=== PATIENT | male | born 1960 | race Caucasian/White ===

== ENCOUNTER 2019-01-19 14:15 | Inpatient (IN) | payer OTHER ==
[~2019-01-19] VITALS: Ht 177.8 cm; Wt 92.6 kg
[~2019-01-19 14:15] MED LIST: DOXE50CA2 PO; FLUO40CA6 PO
[2019-01-19 14:24] VITALS: BP 137/88
--- NOTE | 2019-01-19 14:31 | NUR ---
PT AMBULATED TO LOBBY, VSS
--- NOTE | 2019-01-19 15:02 | NUR ---
C/O CP X2 DAYS. PT REPORTS CONSTANT SARP PAIN IN LT CHEST. STATES PAIN RADIATED TO THE RT SHOULDER. PAIN 9/10. FEELS TINGLING SENSATION ON HIS RT HAND. ABLE TO MOVE , CMS GOOD AT HAND. - N/V, OR SOB . JENA CONTINUE TO MONTIOR PT. PT STATES TO HAVE TAKEN LISINOPRIL 10 MG AT HOME. MEDHX:BACK SURGERY, DVT, IVC FILTER.
--- NOTE | 2019-01-19 15:13 | NUR ---
ER MD ASSESSING PT AT THE BEDSIDE. PROVIDED URINAL , GAVE MORE WATER TO DRINK. WILL CONTINUE TO MONITOR PT.
[2019-01-19 15:19] LABS: BASOPHILS % (AUTO) 0.6 % (0.0-2.0); EOSINOPHILS # (AUTO) 0.1 K/uL (0-0.4); EOSINOPHILS % (AUTO) 1.7 % (0.0-4.0); HEMATOCRIT 41.3 % (36-52); HEMOGLOBIN 13.9 g/dL (12.0-18.0); LYMPHOCYTES # (AUTO) 1.2 K/uL (2.0-11.5); LYMPHOCYTES % (AUTO) 15.3 % (20.5-51.1); MEAN CORPUSCULAR HEMOGLOBIN 33 pg (27-31); MEAN CORPUSCULAR HGB CONC 34 g/dL (33-37); MEAN CORPUSCULAR VOLUME 96.8 fL (80-94); MONOCYTES # (AUTO) 0.5 K/uL (0.8-1.0); MONOCYTES % (AUTO) 6.2 % (1.7-9.3); NEUTROPHILS # (AUTO) 6.2 K/uL (1.8-7.7); NEUTROPHILS % (AUTO) 76.2 % (42.2-75.2); PLATELET COUNT (AUTO) 239 K/uL (140-450); RED BLOOD CELL COUNT(AUTO) 4.27 MIL/uL (4.20-6.10); WHITE BLOOD COUNT (AUTO) 8.1 K/uL (4.8-10.8)
[2019-01-19] MEDS ORDERED: KETOROLAC 30 MG/ML VIAL IVP ONE (15:25)
[2019-01-19] MEDS ORDERED: MORPHINE SULFATE 4 MG/ML SYR IVP ONE (15:25)
[2019-01-19] MEDS ORDERED: LISI10TA11 PO (15:37)
[2019-01-19 15:44] LABS: ANION GAP 14.6 (8-16); CARBON DIOXIDE 27.5 mmol/L (21-32); CREATININE 1.2 mg/dL (0.7-1.3); MAGNESIUM 1.6 mg/dL (1.8-2.4); POTASSIUM 4.1 mmol/L (3.5-5.1)
--- NOTE | 2019-01-19 15:44 | NUR ---
ADMINISTERED MEDS TO PT ORDERED. SIT PT UPRIGHT , C/O PAIN AT CHEST AT RT SIDE WITH MOVEMENT. GAVE WATER, UNABLE TO PEE AT THIS TIME. WILL TRY AGAIN WITH URINAL. WILL [place] TO MONITOR PT.
[2019-01-19 15:48] LABS: PROTHROMBIN TIME 8.7 secs (10.8-13.4)
[2019-01-19 15:51] LABS: ALBUMIN 4.2 g/dL (3.4-5.0); TOTAL BILIRUBIN 0.6 mg/dL (0.0-1.0)
[2019-01-19] MEDS ORDERED: LORazepam 2 MG/ML VIAL IM/IVP PRN (15:55)
[2019-01-19] MEDS ORDERED: ONDANSETRON 4 MG/2 ML VIAL IM/IVP PRN (15:55)
[2019-01-19] MEDS ORDERED: HYDROcodone/APAP 7.5/325 MG 1 TAB PO PRN (15:55)
[2019-01-19] MEDS ORDERED: FAMOTIDINE 20 MG/2 ML VIAL IV PRN (15:55)
[2019-01-19] MEDS ORDERED: DOCUSATE SODIUM 100 MG GELCAP PO PRN (15:55)
[2019-01-19] MEDS ORDERED: ACETAMINOPHEN 325 MG TAB PO PRN (15:55)
--- NOTE | 2019-01-19 16:35 | NUR ---
RECEIVED PT FROM ED NURSE SURINDER. PT IS AAOX4 AMBULATORY MALE. PT ABLE TO MAKE NEEDS KNOW. PT SKIN IS INTACT. ON RA. PT IV TO THE RIGHT AC 20G SALINE LOCKED. PATENT AND INTACT. PT EXHIBITS CHEST PAIN BUT MEDS GIVEN IN ED FOR PAIN RELIEF. NO SOB REPORT AT THIS MAGI. ORIENTED PT TO ENVIRONMENT AND DISCUSSED POC WITH PT AND AT BEDSIDE AND BOTH VERBALIZED UNDERSTANDING. WILL MONITOR PT CLOSELY. BED IN LOW POSITION, CALL LIGHT WITHIN REACH.
--- NOTE | 2019-01-19 16:35 | NUR ---
Patient will be admitted to care of . Admited to [facility] FLOOR. Will go to room 11A. Belongings list completed. Report to VIRGILIO chang. pt stable at the time of discharge. pt family at the bedside.
[2019-01-19 16:39] LABS: ALBUMIN 4.2 g/dL (3.4-5.0); CHOL/HDL RATIO 3.9 (1-4.5); FREE T4 (FREE THYROXINE) 0.84 ng/dL (0.76-1.46); PHOSPHORUS 3.6 mg/dL (2.5-4.9); THYROID STIMULATING HORMONE 0.9 uIU/mL (0.34-3.74)
[2019-01-19] MEDS ORDERED: LISINOPRIL 10 MG TAB PO SCH (17:15)
[2019-01-19] MEDS: BACLOFEN 10 MG TAB PO SCH ×2 (17:22→17:23)
[2019-01-19] MEDS ORDERED: NITROGLYCERIN 0.4 MG TAB SL PRN (17:25)
[2019-01-19] MEDS ORDERED: MAG SULF 2000 MG/WATER PREMIX 50 ML IV SCH (17:40)
[2019-01-19] MEDS ORDERED: ASPIRIN 81 MG TAB.CHEW PO SCH (18:00)
--- NOTE | 2019-01-19 18:14 | NUR ---
PT RESTING IN BED WITH AT BEDSIDE. PT EATING FOOD BROUGHT BY . ALL NEEDS CURRENTLY MET. WILL CONTINUE TO MONITOR PT CLOSELY.
--- NOTE | 2019-01-19 18:58 | NUR ---
PATIENT SITTING IN BED WATCHING TV. FAMILY AT BEDSIDE. NO DISTRESS NOTED. SCHEDULED MEDICATIONS DUE GIVEN. WILL CONTINUE TO MONITOR.
--- NOTE | 2019-01-19 19:35 | NUR ---
ENDORSED PT TO MEDICAL NUMERICAL CONTROL OPERATOR FOR CONTINUITY OF CARE. PT IN STABLE CONDITION AT THIS TIME.
--- NOTE | 2019-01-19 19:36 | NUR ---
RECEIVED PT SLEEPING, EASILY AROUSABLE, VITAL SIGNS TAKEN, BP SLIGHTLY ELEVATED, DENIES ANY PAIN, NO SOB NOTED, PLAN OF CARE DISCUSSED, SAFETY MEASURES IN PLACE, CALL LIGHT WITHIN REACH.
[2019-01-19 20:00] VITALS: BP 144/70
[2019-01-19] MEDS ORDERED: KETOROLAC 30 MG/ML VIAL IVP PRN (20:00)
[2019-01-19] MEDS: SIMVASTATIN 10 MG TAB PO SCH (20:32)
[2019-01-19] MEDS: METOPROLOL 25 MG TAB PO SCH (20:33)
--- NOTE | 2019-01-19 20:40 | NUR ---
DUE MEDICATIONS TAKEN WITH EDUCATION PROVIDED, ALL NEEDS ATTENDED.
--- NOTE | 2019-01-19 21:40 | NUR ---
SEEN PT SLEEPING, NO SIGNS OF DISTRESS NOTED, MONITORED CLOSELY.
--- NOTE | 2019-01-19 23:42 | NUR ---
PT SLEEPING, EASILY AROUSABLE, VITAL SIGNS STABLE, DENIES ANY PAIN, NO SOB NOTED, PT AMBULATED TO BR WITH STEADY GAIT, VOIDED FREELY, URINE SPECIMEN SENT TO LAB FOR TEST, CONTINUE TO MONITOR CLOSELY.
[2019-01-20] VITALS: BP 121/86
[2019-01-20 01:07] LABS: APPEARANCE,URINE CLEAR (CLEAR); BILIRUBIN,URINE NEGATIVE (NEGATIVE); BLOOD, URINE NEGATIVE (NEGATIVE); COLOR,URINE YELLOW (YELLOW); LEUKOCYTE ESTERASE ,URINE NEGATIVE (NEGATIVE); NITRITE, URINE NEGATIVE (NEGATIVE); PH,URINE 5.5 (5.0-9.0); UGLUCOSE NEGATIVE (NEGATIVE)
[2019-01-20 01:15] LABS: BARBITURATE, URINE NEG. ng/ml (NEG <=200); BENZODIAZEPINE, URINE NEG. ng/mL (NEG <=200); CANNABINOID, URINE POS. ng/mL (NEG <=50); COCAINE, URINE NEG. ng/mL (NEG <=300); OPIATE, URINE POS. ng/mL (NEG <=2000); PHENCYCLIDINE SCREEN,URINE NEG. ng/mL (NEG <=25)
[2019-01-20 04:00] VITALS: BP_SYST 115; BP_SYST 120; BP_DIAS 69; BP_DIAS 75
--- NOTE | 2019-01-20 04:10 | NUR ---
PT SLEEPING, EASILY AROUSABLE, VITAL SIGNS STABLE, DENIES ANY PAIN, NO SOB NOTED, MONITORED CLOSELY.
--- NOTE | 2019-01-20 07:16 | NUR ---
PT AWAKE, NO SIGNS OF DISTRESS, BEDSIDE REPORT GIVEN TO VIRGILIO CRUZ FOR CONTINUITY OF CARE.
--- NOTE | 2019-01-20 07:30 | NUR ---
RECEIVED REPORT FROM PM NURSE. PT AWAKE, ALERT. ON RA. NO SOS. PT DENIES CHEST PAIN AT THIS MOMENT BUT ADMITS HAS CHRONIC BACK PAIN. PT INTRODUCED MYSELF. CALL LIGHT IN REACH, WILL CONTINUE TO MONITOR.
[2019-01-20 07:31] LABS: ANION GAP 14.2 (8-16); CARBON DIOXIDE 22.8 mmol/L (21-32); CREATININE 0.9 mg/dL (0.7-1.3)
[2019-01-20 07:34] LABS: BASOPHILS # (AUTO) 0.1 K/uL (0.00-0.22); BASOPHILS % (AUTO) 1.4 % (0.0-2.0); EOSINOPHILS # (AUTO) 0.2 K/uL (0-0.4); EOSINOPHILS % (AUTO) 4.9 % (0.0-4.0); HEMATOCRIT 39.9 % (36-52); HEMOGLOBIN 13.5 g/dL (12.0-18.0); LYMPHOCYTES # (AUTO) 1.4 K/uL (2.0-11.5); LYMPHOCYTES % (AUTO) 28.2 % (20.5-51.1); MEAN CORPUSCULAR HEMOGLOBIN 33 pg (27-31); MEAN CORPUSCULAR HGB CONC 34 g/dL (33-37); MEAN CORPUSCULAR VOLUME 97.5 fL (80-94); MONOCYTES # (AUTO) 0.5 K/uL (0.8-1.0); MONOCYTES % (AUTO) 9.7 % (1.7-9.3); NEUTROPHILS # (AUTO) 2.8 K/uL (1.8-7.7); NEUTROPHILS % (AUTO) 55.8 % (42.2-75.2); PLATELET COUNT (AUTO) 209 K/uL (140-450); RED BLOOD CELL COUNT(AUTO) 4.09 MIL/uL (4.20-6.10); RED CELL DISTRIBUTION WIDTH 13.1 % (11.6-13.7)
[2019-01-20 08:00] VITALS: BP 151/85
--- NOTE | 2019-01-20 09:01 | NUR ---
PATIENT HAS BEEN SCREENED AND CATEGORIZED MODERATE NUTRITION RISK. PATIENT WILL BE SEEN WITHIN 3-5 DAYS OF ADMISSION. 01/22/19 01/24/[address]
[2019-01-20] MEDS: LISINOPRIL 10 MG TAB PO SCH (09:22)
[2019-01-20] MEDS: METOPROLOL 25 MG TAB PO SCH ×2 (09:23→21:00)
[2019-01-20] MEDS: BACLOFEN 10 MG TAB PO SCH ×3 (09:23→16:21)
[2019-01-20] MEDS: ASPIRIN 81 MG TAB.CHEW PO SCH (09:23)
--- NOTE | 2019-01-20 09:30 | NUR ---
PT TOLERATED DUE MEDS WELL. PT STATED HE HAS CHRONIC PAIN AT HOME BUT HE NEVER TOOK ANY PAIN MEDICATION.
[2019-01-20 12:00] VITALS: BP 142/82
[2019-01-20 16:00] VITALS: BP 140/90
--- NOTE | 2019-01-20 19:15 | NUR ---
RECEIVED PT SLEEPING, EASILY AORUSABLE TO VOICE, VITAL SIGNS STABLE, SB-SR ON TELE, DENIES CHEST PAIN BUT WITH TOLERABLE CHRONIC BACK PAIN, PLAN OF CARE DISCUSSED, SAFETY MEASURES IN PLACE, CALL LIGHT WITHIN REACH.
[2019-01-20 20:00] VITALS: BP 132/76
[2019-01-20] MEDS: SIMVASTATIN 10 MG TAB PO SCH (21:04)
--- NOTE | 2019-01-20 21:05 | NUR ---
DUE MEDICATION GIVEN, HELD METOPROLOL DUE TO HR OF 59 BPM AT THIS TIME, ASYMPTOMATIC, ALL NEEDS ATTENDED.
--- NOTE | 2019-01-20 22:30 | NUR ---
ROUNDS MADE, SEEN PT SLEEPING, VISIBLE CHEST RISE AND FALL, NO SIGNS OF DISTRESS, MONITORED CLOSELY.
[2019-01-21] VITALS: BP 149/85
--- NOTE | 2019-01-21 | NUR ---
PT SLEEPING, EASILY AROUSABLE TO TOUCH, VITAL SIGNS TAKEN, BP SLIGHTLY ELEVATED, SB ON TELE, ASYMPTOMATIC, DENIES CHEST PAIN AND NO SOB NOTED, CONTINUE TO MONITOR CLOSELY.
[2019-01-21 04:00] VITALS: BP 145/83
--- NOTE | 2019-01-21 04:00 | NUR ---
PT SLEEPING, EASILY AROUSABLE TO TOUCH, VITAL SIGNS TAKEN, BP SLIGHTLY ELEVATED, SR ON TELE, DENIES CHEST PAIN BUT WITH TOLERABLE CHRONIC BACK PAIN, MONITORED CLOSELY.
--- NOTE | 2019-01-21 07:12 | NUR ---
PT SLEEPING, NO SIGNS OF DISTRESS, REPORT GIVEN TO VIRGILIO GARCIA FOR CONTINUITY OF CARE.
[2019-01-21 07:17] LABS: BASOPHILS # (AUTO) 0.1 K/uL (0.00-0.22); BASOPHILS % (AUTO) 1.1 % (0.0-2.0); EOSINOPHILS # (AUTO) 0.2 K/uL (0-0.4); EOSINOPHILS % (AUTO) 3.2 % (0.0-4.0); HEMATOCRIT 43.6 % (36-52); HEMOGLOBIN 14.8 g/dL (12.0-18.0); LYMPHOCYTES # (AUTO) 1.7 K/uL (2.0-11.5); LYMPHOCYTES % (AUTO) 21.5 % (20.5-51.1); MEAN CORPUSCULAR HEMOGLOBIN 33 pg (27-31); MEAN CORPUSCULAR HGB CONC 34 g/dL (33-37); MEAN CORPUSCULAR VOLUME 96.9 fL (80-94); MONOCYTES # (AUTO) 0.5 K/uL (0.8-1.0); NEUTROPHILS # (AUTO) 5.3 K/uL (1.8-7.7); NEUTROPHILS % (AUTO) 68.2 % (42.2-75.2); PLATELET COUNT (AUTO) 235 K/uL (140-450); RED CELL DISTRIBUTION WIDTH 13.4 % (11.6-13.7); WHITE BLOOD COUNT (AUTO) 7.7 K/uL (4.8-10.8)
--- NOTE | 2019-01-21 07:20 | NUR ---
RECEIVED BEDSIDE REPORT FROM CREDIT AND LOAN COLLECTIONS SUPERVISOR NURSE, PT IS ASLEEP. NO S/S OF ANY ACUTE DISTRESS NOTED. PT IS ON ROOM AIR, SKIN IS INTACT. IV SITE IS ON THE R AC 20 G, SALINE LOCKED. PT IS ABLE TO AMBULATE INDEPENDENTLY AND IS NOT A FALL RISK. CALL LIGHT IS WITHIN REACH.
[2019-01-21 07:32] LABS: ANION GAP 12.7 (8-16); CARBON DIOXIDE 26.8 mmol/L (21-32); CREATININE 0.9 mg/dL (0.7-1.3); POTASSIUM 4.5 mmol/L (3.5-5.1)
[2019-01-21 07:38] LABS: MAGNESIUM 1.8 mg/dL (1.8-2.4); PHOSPHORUS 2.8 mg/dL (2.5-4.9)
[2019-01-21 08:00] VITALS: BP 165/99
[2019-01-21] MEDS: METOPROLOL 25 MG TAB PO SCH (08:46)
[2019-01-21] MEDS: ASPIRIN 81 MG TAB.CHEW PO SCH (08:46)
[2019-01-21] MEDS: BACLOFEN 10 MG TAB PO SCH (08:47)
[2019-01-21] MEDS: LISINOPRIL 10 MG TAB PO SCH (08:47)
--- NOTE | 2019-01-21 08:53 | NUR ---
AM MEDS ADMINISTERED, PT TOLERATED WELL.
--- NOTE | 2019-01-21 10:15 | NUR ---
PT IS SLEEPING COMFORTABLY
[2019-01-21] MEDS ORDERED: BACL10TA4 PO (11:20)
[2019-01-21] MEDS ORDERED: SIMV10TA6 PO (11:20)
[2019-01-21] MEDS ORDERED: ASPI81CT95 PO (11:20)
[2019-01-21 12:00] VITALS: BP 143/92
--- NOTE | 2019-01-21 12:20 | NUR ---
PT HAS DISCHARGED. PT WAS GIVEN DISCHARGE INSTRUCTIONS AND PRESCRIPTION, AND VERBALIZED UNDERSTANDING OF DC TEACHING. IV SITE AND WRIST BANDS WERE REMOVED. PT LEFT IN STABLE CONDITION WITH ALL HIS BELONGINGS. HEART MONITOR RETURNED TO MONITOR BIN.
== END 2019-01-21 12:20 | disposition home or self-care (01) | DRG 206 ==
LOC: MED 14:15 → MTU 15:53
PROVIDERS: ADMIT General Practice; ATTEND General Practice
DX: M94.0 Chondrocostal junction syndrome [Tietze] (principal); E83.42 Hypomagnesemia; M62.838 Other muscle spasm; I10 Essential (primary) hypertension; E78.5 Hyperlipidemia, unspecified; M54.9 Dorsalgia, unspecified; Z86.718 Personal history of other venous thrombosis and embolism; Z95.828 Presence of other vascular implants and grafts; Z71.6 Tobacco abuse counseling; Z79.899 Other long term (current) drug therapy; F17.210 Nicotine dependence, cigarettes, uncomplicated
CPT/HCPCS: 36415; 71045; 80048; 80053; 80305; 81003; 82040; 82150; 83036; 83605; 83690; 83735; 83880; 84100; 84134; 84439; 84443; 84484; 85025; 85379; 85610; 85730; 87081; 93005; 93925; 93970; 96374; 96375; 99285; G0482; J1885; J2270; J3475; Q0092